=== PATIENT | male | born 1985 ===

== ENCOUNTER 2016-11-24 07:24 | Day surgery (SDC) | payer BC ==
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
[~2016-11-24 07:24] MED LIST: EPINEPHrine 1:1000 1 MG/ML SDV ONE; Lactated Ringers 1,000 ML IV SCH; Lidocaine 1% 2 ML SDV ONE; Lidocaine 1%/Sod Bicarbonate in NS 8.4% 1 ML Syringe PRN; Midazolam 1 MG/ML 2 ML SDV ONE; Ondansetron 4 MG/2 ML SDV ONE; Propofol 200 MG/20 ML SDV ONE; Rocuronium 50 MG/5 ML Vial ONE; Ropivacaine 0.5% 5 MG/ML 30 ML SDV ONE; Sodium Chloride 0.9% 10 ML Syringe FLUSH PRN; ceFAZolin 1 GM Vial ONE; fentaNYL 100 MCG/2 ML SDV ONE
[2016-11-24] MEDS ORDERED: Scopolamine 1.5 MG Transdermal Patch TOP ONE (07:43)
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
--- NOTE | 2016-11-24 08:34 | PCM.SN ---
- Free Text/Narrative Note: Note: 11/24/2016 0830 97/64 87 100% 20 Surgeon and pt request post-op pain control for right shoulder surgery risk of block failure, facial numbness, site infection, and chronic pain discussed with pt and agreed to proceed. All standard monitors est. EKG, BP, Pulse Ox, 2ml O2 and 2ml versed, 2ml fentanyl pre-op dx. right shoulder pain post-op dx right shoulder arthroscopy pt for interscalene block placement all standard monitors est. pt ID time out performed IV sedation 2ml versed, 2ml fentanyl, 2L NC O2, sterile prep and drape of right neck and shoulder U/S placed with visualization of brachial plexus from clavicle to cricoid local skin infiltration 22ga. Stimplex A insulated needle visualized at brachial plexus nerve stimulator at .9 Maggie Amps stop at .4 Maggie Amps with good bicep twitch with 1ml NaCl and lose of twitch neg aspirations every 5ml of 0.5% ropivacaine and 1:200,000 epi total of 30ml injected all done with U/S guidance needle withdrawn no complications noted pt tolerated procedure well block settling in start procedure at 0811 end procedure at 0824 114/67 92 100% 18
[2016-11-24] MEDS ORDERED: EPINEPHrine 1:1000 1 MG/ML 30 ML MDV ONE (08:39)
[2016-11-24] MEDS ORDERED: HYDROmorphone 0.5 MG/0.5 ML Syringe IVPUSH PRN (09:16)
[2016-11-24] MEDS ORDERED: Ondansetron 4 MG/2 ML SDV IVPUSH PRN (09:16)
[2016-11-24] MEDS ORDERED: Cyclobenzaprine 10 MG Tab PO PRN (09:16)
[2016-11-24] MEDS ORDERED: Ketorolac 30 MG/ML SDV IVPUSH PRN (09:16)
[2016-11-24] MEDS ORDERED: Acetaminophen/oxyCODONE 325-5 MG Tab PO PRN (09:16)
[2016-11-24] MEDS ORDERED: Morphine 15 MG Tab.ER PO SCH (09:30)
[2016-11-24] MEDS ORDERED: fentaNYL 100 MCG/2 ML SDV ONE ×3 (09:30→11:28)
[2016-11-24] MEDS ORDERED: Rocuronium 50 MG/5 ML Vial ONE (09:43)
[2016-11-24] MEDS ORDERED: Labetalol 100 MG/20 ML MDV ONE (09:55)
[2016-11-24] MEDS ORDERED: Lactated Ringers 1,000 ML ONE (09:57)
[2016-11-24] MEDS ORDERED: Dexamethasone 4 MG/ML 5 ML MDV ONE (10:06)
[2016-11-24] MEDS ORDERED: diphenhydrAMINE 50 MG/ML SDV ONE (10:06)
[2016-11-24] MEDS ORDERED: fentaNYL 100 MCG/2 ML SDV IVPUSH PRN (11:35)
--- NOTE | 2016-11-24 11:37 | PCM.POSTAN ---
POST ANESTHESIA ASSESSMENT - MENTAL STATUS Mental Status: somnolent - VITAL SIGNS Pulse Rate: 74 SaO2: 92 Resp Rate: 18 Blood Pressure: 126/68 Temperature: 36.2 C - RESPIRATORY Respiratory Status: respiratory rate WNL, airway patent, O2 saturation stable, supplemental oxygen - CARDIOVASCULAR CV Status: pulse rate WNL, blood pressure stable - GASTROINTESTINAL GI Status: no symptoms - PAIN Pain Score: 0 - POST OP HYDRATION Hydration Status: adequate & stable - OBSERVATIONS Free Text/Narrative:: no anesthesia complications noted
[2016-11-24 14:36] VITALS: BP 128/74
--- NOTE | 2016-11-25 11:56 | OR ---
DATE OF OPERATION: 11/24/2016 SURGEON: Jed Kitchen MD PREOPERATIVE DIAGNOSIS: 1. Right shoulder rotator cuff impingement with severe acromioclavicular joint degenerative disease. 2. Tear anterior glenoid labrum degenerative with fragmentation. 3. Biceps tendonitis. POSTOPERATIVE DIAGNOSIS: 1. Right shoulder rotator cuff impingement with severe acromioclavicular joint degenerative disease. 2. Tear anterior glenoid labrum degenerative with fragmentation. 3. Biceps tendonitis. ANESTHESIA: General. OPERATION PERFORMED: 1. Right shoulder arthroscopic debridement of torn anterior glenoid labrum. 2. Right shoulder arthroscopic partial acromionectomy. 3. Right shoulder arthroscopic distal clavicle resection. DESCRIPTION OF PROCEDURE: The patient was taken to the operating room and placed in supine position. He was placed under a general anesthesia. He was then placed in a sitting position for operation on the right shoulder arthroscopically. Once the patient was positioned, the operation then proceeded with prepping and draping the right shoulder by standard technique and operation proceeded with the arthroscopy with the posterior portal being developed in anatomical soft spot. Once that portal was developed, the arthroscope was introduced into the posterior aspect of the joint and initial visualization of the joint itself on the rotator cuff to be intact. The biceps tendon that exited through the foramen showed biceps tendonitis with inflammation on the surface of the tendon. The tendon was firmly attached to the glenoid. There was tearing of the anterior portion of the glenoid labrum that was quite degenerative and extensive. This was debrided out smooth area and then the subscapularis was intact. The anterior portal was developed using a Wissinger abhishek and once that was completed, the instrumentation could be carried out through the anterior portal. The operation then proceeded. After the surgery was completed at the anterior portion of the joint, the arthroscope was withdrawn and placed in the subacromial space and a lateral portal was then developed. Once the lateral portal was developed, a bursectomy was carried out to review the acromion and the acromion itself was then identified and visualized along with the AC joint. The AC joint showed significant degenerative changes with loss of the surface cartilage on the clavicle and degenerative tissue all through the AC joint anteriorly. Also, the acromion had a significant anterior forward curvature. Identifying that, the operation proceeded with partial acromionectomy being carried out and then a distal clavicle resection was carried out by Naa. This decompressed the shoulder very nicely. Bleeding was controlled with electrocautery. Final inspection found minimal no bleeding type changes in the joint area with the water pressure being reduced. The operation then proceeded with final irrigation of the joint area. The patient's wounds were then closed with 3-0 Prolene. The skin was then closed. Standard dressings were applied. The patient was placed on abduction pillow. He tolerated the procedure well. He left the operating room in stable condition and to his room for recovery. ESTIMATED BLOOD LOSS: MMODAL /[id number]
== END 2016-11-24 14:30 | disposition home or self-care (01) ==
LOC: JD.SDS 07:24
PROVIDERS: ATTEND Specialist
DX: M19.011 Primary osteoarthritis, right shoulder (principal); M75.41 Impingement syndrome of right shoulder; S43.491A Other sprain of right shoulder joint, initial encounter; M75.21 Bicipital tendinitis, right shoulder; Z98.890 Other specified postprocedural states
CPT/HCPCS: 01630; 64415; A9270-GY; J0171; J0690; J1100; J1170; J1200; J2250; J2405; J2704; J2795; J3010; J7120